=== PATIENT | male | born 1950 ===

== ENCOUNTER → 2017-04-08 | Outpatient (REF) | payer MEDICARE, OTHER ==
[~2017-04-08] MED LIST: /AUGM875TA OR; /DULO30CA OR; /TAMS4CA OR; ACET65TA OR; CLIN300C OR; FISH1000 OR; MULTIVIT PO; TRIC145T19 OR; VITA100T OR; VITA400C OR; VITA500T OR; [UNRECOGNIZED DRUG - OTHER] PO; [UNRECOGNIZED DRUG - OTHER] PO; chromium picolinate PO; cinnamon PO; flaxseed oil PO; omega 3 PO; vit b6 PO
[2017-04-10 20:22] LABS: VITAMIN B12 LEVEL 333 PG/ML (247-911)
== END ==
LOC: M LAB REF 16:38
PROVIDERS: ATTEND Internal Medicine
DX: G62.9 Polyneuropathy, unspecified (principal); Z11.59 Encounter for screening for other viral diseases